=== PATIENT | female | born 1985 | race African-American/Black ===

== ENCOUNTER → 2017-09-11 | Outpatient (CLI) | payer OTHER ==
[~2017-09-11] MED LIST: ACETAMINOPHEN-1 EAC1 PO; AMOXICILLIN 50500 MG PO; CIPROFLOXACIN500 M1 PO; CYCLOBENZAPRINE5 MG PO; FLAGYL500 MG PO; HYDROCODONE-AP1 EAC6 PO; KEFLEX500 M1 PO; MEDROLDOSEPACK PO; MOBIC15 MG PO; NAPROSYN500 MG PO; NOHOMEMEDICATIONS; NORCO 5-325 TA1 EACH PO; ULTRAM 50MG TAB50 MG PO; ZPAK PO
== END ==
LOC: RAD 16:55
DX: M54.5 Low back pain (principal); M54.2 Cervicalgia; R06.2 Wheezing; R20.0 Anesthesia of skin; R20.2 Paresthesia of skin

== ENCOUNTER 2018-04-24 05:40 | Emergency (ER) | payer OTHER ==
[~2018-04-24] VITALS: Ht 152.4 cm; Wt 61.2 kg
--- NOTE | ~2018-04-24 | EKG ---
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
[2018-04-24 06:53] LABS: URINE BILIRUBIN NEGATIVE (Negative); URINE BLOOD NEGATIVE (Negative); URINE CLARITY CLEAR; URINE COLOR YELLOW; URINE GLUCOSE-RANDOM* NEGATIVE (Negative); URINE KETONES NEGATIVE (Negative); URINE LEUKOCYTES NEGATIVE (Negative); URINE NITRITE NEGATIVE (Negative); URINE PROTEIN (DIPSTICK) NEGATIVE (Negative); URINE SPECIFIC GRAVITY >= 1.030 (1.005-1.035); URINE UROBILINOGEN 0.2 E.U./dl (0.2-1.0)
[2018-04-24] MEDS ORDERED: NORCO 5-325 TA1 EACH PO (06:58)
[2018-04-24] MEDS ORDERED: PENICILLIN VK500 M1 PO (06:58)
[2018-04-24 07:25] VITALS: BP 107/66
== END 2018-04-24 07:26 | disposition home or self-care (01) ==
LOC: ER 05:40
PROVIDERS: Emergency Medicine
DX: K02.9 Dental caries, unspecified (principal); M54.9 Dorsalgia, unspecified; R00.2 Palpitations; R39.15 Urgency of urination; R06.02 Shortness of breath; R10.9 Unspecified abdominal pain; Z72.0 Tobacco use; Z88.6 Allergy status to analgesic agent

== ENCOUNTER 2018-05-10 04:18 | Emergency (ER) | payer OTHER ==
[~2018-05-10] VITALS: Ht 167.6 cm; Wt 61.2 kg
[~2018-05-10 04:18] MED LIST changes: +PENICILLIN VK500 M1 PO
[2018-05-10] MEDS ORDERED: NAPROSYN500 MG PO (05:10)
[2018-05-10 06:46] VITALS: BP 125/86
== END 2018-05-10 06:10 | disposition home or self-care (01) ==
LOC: ER 04:18
DX: K02.9 Dental caries, unspecified (principal); Z88.6 Allergy status to analgesic agent

== ENCOUNTER 2021-08-26 01:14 | Emergency (ER) | payer OTHER ==
[~2021-08-26] VITALS: Ht 152.4 cm; Wt 54.9 kg
[2021-08-26] MEDS ORDERED: NOHOMEMEDICATIONS (01:22)
[2021-08-26 02:04] LABS: URINE BILIRUBIN NEGATIVE (Negative); URINE BLOOD NEGATIVE (Negative); URINE CLARITY CLEAR; URINE COLOR YELLOW; URINE GLUCOSE-RANDOM* NEGATIVE (Negative); URINE KETONES NEGATIVE (Negative); URINE NITRITE-REFLEX NEGATIVE (Negative); URINE PROTEIN (DIPSTICK) NEGATIVE (Negative); URINE SPECIFIC GRAVITY >= 1.030 (1.005-1.035)
[2021-08-26 02:05] LABS: URINE LEUKOCYTES-REFLEX 1+ (Negative)
[2021-08-26 02:15] LABS: BACTERIA-REFLEX 1-9 Few /HPF (None Seen); CASTS None Seen /LPF (None Seen); CRYSTALS None Seen /LPF (None Seen); MUCUS 0-3 Light strn/LPF (None Seen); SQUAMOUS 0-3 Few /LPF (0-3); URINE RBC 3-10 Few /HPF (NONE SEEN); URINE WBC-REFLEX 0-5 Rare /HPF (0-5)
[2021-08-26 02:20] VITALS: BP 32/68
[2021-08-26] MEDS ORDERED: LIDODERM1 EACH TOP (02:23)
[2021-08-26] MEDS ORDERED: NORCO5 PO (02:23)
[2021-08-26] MEDS ORDERED: KEFLEX750 MG PO (02:23)
== END 2021-08-26 04:17 | disposition home or self-care (01) ==
LOC: ER 01:14
PROVIDERS: Emergency Medicine
DX: N39.0 Urinary tract infection, site not specified (principal); Z88.6 Allergy status to analgesic agent; Z98.890 Other specified postprocedural states